=== PATIENT | male | born 1955 | race Caucasian/White ===

== ENCOUNTER → 2019-01-31 09:52 | Outpatient (CLI) | payer OTHER, SELFPAY ==
--- NOTE | 2019-01-31 10:03 | RAD_ITS ---
STUDY: X-RAY - ABDOMEN/PELVIS REASON FOR EXAM: Male, 63 years old. Flank pain, hematuria TECHNIQUE: AP supine and upright views of the abdomen and pelvis. COMPARISON: None. FINDINGS: No visualized calcifications overlying either renal shadow, or along the expected course of either ureter. However, one could be obscured by the overlying bowel gas and stool There is an unremarkable bowel gas pattern. There is no demonstrated free abdominal air. The visualized liver, spleen and kidneys are grossly normal in size and morphology. Normal soft tissue structures. Normal visualized osseous structures. RAD/Abdomen Single View IMPRESSION: No acute findings Electronically Signed: Rene Ramires MD at 10:28 EDT , Service support ,
== END ==
PROVIDERS: Family Provider Family Medicine; PCP Family Medicine; Referring Provider Urology; Visit Provider Urology
DX: R31.9 Hematuria, unspecified (principal)
CPT/HCPCS: 74018

== ENCOUNTER → 2019-07-24 | Outpatient (CLI) | payer OTHER, SELFPAY ==
[2015-09-08 09:25] VITALS: BMI 32.1
== END | disposition home or self-care (01) ==
LOC: LABSPEC 16:01
PROVIDERS: PCP Family Medicine; Referring Provider Urology; Visit Provider Urology
DX: R31.29 Other microscopic hematuria (principal)
CPT/HCPCS: 87086

== ENCOUNTER → 2019-07-27 16:54 | Outpatient (CLI) | payer OTHER, SELFPAY ==
[2015-09-08 09:25] VITALS: BMI 32.1
--- NOTE | 2019-07-27 16:58 | CT_ITS ---
STUDY: CT ABDOMEN AND PELVIS WITHOUT CONTRAST REASON FOR EXAM: Male, 64 years old. HEMATURIA RADIATION DOSAGE (If Supplied By Facility): CTDIvol = ( 19.61 ) mGy, DLP = ( 1141.51 ) mGycm TECHNIQUE: Transaxial images were obtained from the dome of the diaphragm to the symphysis pubis without oral contrast, and without intravenous contrast. Sagittal and coronal images were reconstructed. Individualized dose optimization techniques were used for this CT. COMPARISON: None. FINDINGS: The visualized lung bases are unremarkable. The visualized portions of the heart are within normal limits. Multiple hepatic calcified granuloma, otherwise normal liver. Normal gallbladder and extrahepatic biliary system. There are multiple benign calcified granulomata of the spleen. Normal pancreas. Normal bilateral adrenal glands. Normal right kidney. Normal left kidney. Normal visualized stomach. Normal small intestine. Normal colon. The appendix is visualized and appears normal. There is diffuse atherosclerotic calcification of the abdominal aorta, without a demonstrated aneurysm. Normal inferior vena cava. Normal retroperitoneum. Normal urinary bladder. Normal visualized prostate gland. Normal abdominal wall. There are diffuse degenerative changes of the visualized lumbar spine. CT/Abdomen/Pelvis without Cont IMPRESSION: No intrarenal stone, hydronephrosis and hydroureter. No urinary bladder calculus. Hepatic and splenic granulomas, sequela of previous granulomatous infection. No acute process of the gastrointestinal tract. No bowel obstruction. Electronically Signed: Romana Croft MD at 2:56 EDT , Service support ,
== END ==
PROVIDERS: PCP Family Medicine; Referring Provider Nurse Practitioner Adult Health; Visit Provider Nurse Practitioner Adult Health
DX: R31.29 Other microscopic hematuria (principal)
CPT/HCPCS: 74176

== ENCOUNTER → 2019-08-09 06:12 | Outpatient (CLI) | payer OTHER, SELFPAY ==
[2015-09-08 09:25] VITALS: BMI 32.1
== END ==
PROVIDERS: PCP Family Medicine; Referring Provider Urology; Visit Provider Urology
DX: R30.0 Dysuria (principal)
CPT/HCPCS: 87086

== ENCOUNTER → 2020-04-17 08:40 | Outpatient (CLI) | payer OTHER, SELFPAY ==
[2015-09-08 09:25] VITALS: BMI 32.1
[2020-04-17 10:28] LABS: Anion Gap 3 (5-15); BUN 20 mg/dL (7-18); BUN/Creat Ratio 16.9 RATIO (10-20); Calcium,Total 8.6 mg/dL (8.5-10.1); Chloride 106 mmol/L (98-107); Cholesterol 232 mg/dL (200); Creatinine, Serum 1.18 mg/dL (0.70-1.30); EST Glomerular Filtration Rate 66 mL/min (>60); Est Glom Filt Rate - Afr Amer 80 mL/min (>60); Glucose 113 mg/dL (74-106); High Density Lipoprotein 52 mg/dL; Potassium 4.3 mmol/L (3.5-5.1); Sodium Level 137 mmol/L (136-145); Triglycerides 57 mg/dL; Very Low Density Lipoprotein 11 mg/dL (5-40)
== END ==
PROVIDERS: PCP Family Medicine; Visit Provider Family Medicine
DX: I10 Essential (primary) hypertension (principal); E78.5 Hyperlipidemia, unspecified
CPT/HCPCS: 36415; 80048; 80061

== ENCOUNTER → 2020-10-14 10:10 | Outpatient (CLI) | payer OTHER, SELFPAY ==
[2015-09-08 09:25] VITALS: BMI 32.1
[2020-10-14 12:22] LABS: AST(SGOT) 22 U/L (15-37); Alanine Aminotransfer ALT/SGPT 32 U/L (16-61); Albumin, Serum 3.7 g/dL (3.2-5.0); Alkaline Phosphatase 70 U/L (45-117); Anion Gap 6 (5-15); BUN 20 mg/dL (7-18); BUN/Creat Ratio 18.3 RATIO (10-20); Calcium,Total 8.7 mg/dL (8.5-10.1); Chloride 106 mmol/L (98-107); Cholesterol 144 mg/dL (200); Creatinine, Serum 1.09 mg/dL (0.70-1.30); EST Glomerular Filtration Rate 72 mL/min (>60); Est Glom Filt Rate - Afr Amer 88 mL/min (>60); Globulin 3.6 g/dL (2.2-4.2); Glucose 101 mg/dL (74-106); High Density Lipoprotein 49 mg/dL; Potassium 4.8 mmol/L (3.5-5.1); Protein, Total 7.3 g/dL (6.4-8.2); Sodium Level 140 mmol/L (136-145); Triglycerides 56 mg/dL; Very Low Density Lipoprotein 11 mg/dL (5-40)
== END ==
PROVIDERS: PCP Family Medicine; Visit Provider Family Medicine
DX: I10 Essential (primary) hypertension (principal); E78.5 Hyperlipidemia, unspecified
CPT/HCPCS: 36415; 80053; 80061

== ENCOUNTER 2020-11-27 18:00 | Emergency (ER) | payer OTHER, SELFPAY ==
[2020-11-27 18:01] VITALS: BP 161/94; PULSE 84; RESP 17; TEMP 36.9; O2SAT 96; BMI 37.2
--- NOTE | 2020-11-27 19:04 | EX.ED.GENINJ ---
HPI History of Present Illness Chief Complaint: Fall Informant: patient Onset/Context/Timing Onset: Today Mechanism/Context: Fall (Fell from bed of pickup truck) Current Severity: Mild Maximum Severity: Moderate Worsened by: Deep breath, twisting Narrative Narrative: Back of a pickup truck around 2 PM this afternoon. Patient states he finished his job and then went to the dentist. He has left rib pain. He does not feel short of breath but does have increased pain with deep breath. He denies striking his head. No neck pain. No paresthesias or weakness to the extremities. [facility] Medical History GERD (gastroesophageal reflux disease) High cholesterol Hypertension Home Medications atorvastatin 20 mg PO QHS 08/26/15 [History Last Taken Unknown] esomeprazole magnesium [Nexium] 20 mg PO DAILY PRN 08/26/15 [History Last Taken Unknown] losartan 50 mg PO DAILY 08/26/15 [History Last Taken Unknown] hydrocodone-acetaminophen 1 tab PO Q6H PRN 3 Days #10 tab 11/27/20 [Rx Last Taken Unknown] naproxen [Naprosyn] 500 mg PO BID PRN #20 tab 11/27/20 [Rx Last Taken Unknown] Allergy/AdvReac Type Severity Reaction Status Date / Time No Known Allergies Allergy Verified 11/27/20 18:01 Social History Smoking Status: Never smoker ROS ROS ED Constitutional Constitutional ED: Denies chills or fever(s) Eyes Eyes: Denies change in vision ENT ENT ED: Denies sore throat Cardiovascular Cardiovascular: Reports chest pain Respiratory/Chest Respiratory/Chest: Denies cough or dyspnea Gastrointestinal Gastrointestinal: Denies abdominal pain, diarrhea, nausea or vomiting Genitourinary Genitourinary ED: Denies dysuria Musculoskeletal Musculoskeletal: Denies back pain Integumentary Denies rash Neurologic Neurologic: Denies headache(s) or weakness Allergic/Immunologic Allergic/Immunologic ED: Denies urticaria EXAM Physical Exam Const Vital Signs: 11/27/20 18:01 11/27/20 18:10 11/27/20 22:16 Temperature 98.4 F Temperature Source Temporal Pulse Rate 84 82 Respiratory Rate 17 17 Respiratory Effort Normal Respiratory Depth Normal Respiratory Pattern Normal Blood Pressure 161/94 H 124/66 H Blood Pressure Mean 116 Pulse Ox 96 99 Oxygen Delivery Method Room Air Room Air Positive well nourished and well developed General Appearance ED: well developed HEENT Reports normocephalic and head/scalp atraumatic Eyes PERRL and EOMs intact bilaterally Neck supple Chest Wall inspection of chest normal Chest Narrative: Left lateral chest wall pain. No crepitus. Resp normal respiratory effort and clear to auscultation bilaterally Cardio regular rate and regular rhythm GI normal to inspection, nondistended, normoactive bowel sounds Palpation: soft Back/Spine no CVA tenderness Extremity normal to inspection Neuro oriented x3 and no sensory deficits noted Sensorium / Orientation: alert Motor Exam: strength 5/5 throughout Psych mental status grossly normal Skin no rashes or lesions noted MDM MDM MDM Narrative Medical decision making narrative: Rib series with chest x-ray obtained. Patient was given naproxen and [place]. Radiography Diagnostic Testing: Radiology Impression Ribs w/Chest X-Ray 11/27/20 19:27 IMPRESSION: RIBS: Normal x-ray examination of the ribs. CHEST: Mild interstitial fibrosis or edema. Electronically Signed: Ben Jeong MD at 20:01 EDT , Service support , Treatment and Re-Evaluation Comments:: X-rays per my interpretation reveal no obvious rib fracture or pneumothorax. Radiologist interpretation is reviewed. On repeat evaluation patient reports his pain is better controlled. He is given prescriptions for both [place] and naproxen. Discharge Plan Triage Chief Complaint: Fall ED Provider: Sahra Rasheed Dx/Rx/DC Orders Clinical Impression: Contusion of ribs Instructions: ED Contusion, Rib Prescriptions: New hydrocodone-acetaminophen 5-325 mg tablet 1 tab PO Q6H PRN (Reason: pain) 3 Days Qty: 10 RF: 0 naproxen [Naprosyn] 500 mg tablet 500 mg PO BID PRN (Reason: pain) Qty: 20 RF: 0 No Action losartan 50 MG tablet 50 mg PO DAILY RF: 0 atorvastatin 10 MG tablet 20 mg PO QHS RF: 0 esomeprazole magnesium [Nexium] 20 MG capsule 20 mg PO DAILY PRN (Reason: gerd) RF: 0 Primary Care Provider: Norm Jay Referrals: Norm Jay MD [Primary Care Provider] - Disposition Disposition: Home, Self Care Discharge Date/Time: 11/27/20 23:00
[2020-11-27] MEDS: oxyCODONE 5 MG Tablet PO (19:17)
[2020-11-27] MEDS: Naproxen 500 MG Tablet PO (19:17)
--- NOTE | 2020-11-27 19:27 | RAD_ITS ---
STUDY: X-RAY - UNILATERAL RIBS ( LEFT ) WITH CHEST REASON FOR EXAM: Male, 65 years old. Fall TECHNIQUE - RIBS: 5 view(s) of the ribs. TECHNIQUE - CHEST: Single frontal view of the chest. COMPARISON: None. FINDINGS - RIBS: Normal visualized ribs without a demonstrated fracture. FINDINGS - CHEST: There are mild interstitial increased opacities of the lungs. There is right upper lung granuloma. There is no demonstrated pleural abnormality. Normal size heart. There are calcified mediastinal lymph nodes. Normal visualized pulmonary arteries. Normal visualized aortic arch and descending thoracic aorta. Normal visualized thoracic spine. Normal visualized ribs, clavicles, and shoulders. There is no demonstrated abnormality of the visualized soft tissue structures of the upper abdomen. RAD/Ribs Uni Min 3V w/PA Chest IMPRESSION: RIBS: Normal x-ray examination of the ribs. CHEST: Mild interstitial fibrosis or edema. Electronically Signed: Ben Jeong MD at 20:01 EDT , Service support ,
[2020-11-27 22:16] VITALS: BP 124/66; PULSE 82; RESP 17; O2SAT 99
== END 2020-11-27 23:00 | disposition home or self-care (01) ==
PROVIDERS: Emergency Provider Emergency Medicine; PCP Family Medicine
DX: S20.212A Contusion of left front wall of thorax, initial encounter (principal); W17.89XA Other fall from one level to another, initial encounter; Y93.9 Activity, unspecified; Y92.812 Truck as the place of occurrence of the external cause; Y99.9 Unspecified external cause status; I10 Essential (primary) hypertension; E78.00 Pure hypercholesterolemia, unspecified; Z79.899 Other long term (current) drug therapy
CPT/HCPCS: 71101; 99283

== ENCOUNTER → 2020-12-09 | Outpatient (CLI) | payer OTHER, SELFPAY | END | disposition home or self-care (01) | LOC: LAB 18:10 → LABSPEC 20:16 | PROVIDERS: PCP Family Medicine; Visit Provider Family Medicine | DX: U07.1 COVID-19 (principal) | CPT/HCPCS: 87635; U0005; U0003 ==

== ENCOUNTER 2021-04-21 11:00 | Outpatient (CLI) | payer OTHER, SELFPAY | END 2021-04-21 23:59 | disposition short-term general hospital (02) | PROVIDERS: PCP Family Medicine; Visit Provider Nurse Practitioner Acute Care | DX: G47.30 Sleep apnea, unspecified (principal) | CPT/HCPCS: 95806 ==

== ENCOUNTER → 2024-04-17 | Outpatient (CLI) | payer MEDICARE, OTHER, SELFPAY | END | disposition home or self-care (01) | LOC: PSN 09:19 | PROVIDERS: PCP Nurse Practitioner Adult Health; Referring Provider Nurse Practitioner Acute Care; Visit Provider Nurse Practitioner Acute Care | DX: R06.02 Shortness of breath (principal) | CPT/HCPCS: 94060; 94726; 94729 ==